=== PATIENT | female | born 1995 | race Caucasian/White ===

== ENCOUNTER 2017-06-30 00:45 | Emergency (ER) | payer MEDICAID, OTHER ==
--- NOTE | 2017-06-30 00:55 | EDPHY ---
H & P HPI/ROS: HPI CHIEF COMPLAINT: Alcohol Intoxication HISTORY OF PRESENT ILLNESS: Patient is a 21-year-old female she presents emergency room by EMS from a fr[employer] house after she drank large amount of alcohol. She was unable to ambulate and vomiting. No trauma reported. She presents emergency room highly intoxicated with alcohol. She has no complaints. History and review of systems limited due to patient's acute alcohol intoxication. Past Medical History: Unknown Past Surgical History: Unknown Social History: [employer] student, large amount of alcohol this evening. Family History: Unknown ROS REVIEW OF SYSTEMS: A comprehensive 10 point review of systems is otherwise negative aside from elements mentioned in the history of present illness. Exam Constitutional Intoxicated, triage nursing summary reviewed, vital signs reviewed, Sleepy, smells of alcohol Eyes normal conjunctivae and sclera, horizontal beating nystagmus consistent acute alcohol intoxication, otherwise pupils equal and react to light HENT normal inspection, atraumatic, moist mucus membranes, no epistaxis, neck supple/ no meningismus, no raccoon eyes. Respiratory clear to auscultation bilaterally, normal breath sounds, no respiratory distress, no wheezing. Cardiovascular rate normal, regular rhythm, no murmur, no edema, distal pulses normal. Gastrointestinal soft, non-tender, no rebound, no guarding, normal bowel sounds, no distension, no pulsatile mass. Genitourinary no CVA tenderness. Musculoskeletal no midline vertebral tenderness, full range of motion, no calf swelling, no tenderness of extremities, no meningismus, good pulses, neurovascularly intact. Skin pink, warm, & dry, no rash, skin atraumatic. Neurologic sleepy, intoxicated with alcohol,, alert and oriented x 3, AAOx3, moves all 4 extremities equally, motor intact, sensory intact, CN II-XII intact , , normal vision, normal speech. Psychiatric normal mood/affect. Heme/Lymph/Immune no lymphadenopathy. 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 Electrolytes. Monitor for worsening condition. Monitor for sobriety. Re-evaluation: 0405: Re-evaluation at this time. Patient ambulated well to the bathroom. Stable gait. No ataxia. Clinically sober now. She has no focal complaints. She would like to be discharged in emergency room. Will allow her to be discharged with a friend sober ride to pick her up. Source: Patient, EMS Constitutional: Initial Vital Signs Temperature (C) 36.7 C 06/30/17 00:53 Heart Rate 70 06/30/17 00:53 Respiratory Rate 16 06/30/17 00:53 Blood Pressure 106/72 06/30/17 00:53 O2 Sat (%) 94 06/30/17 00:53 O2 Delivery Mode Room Air Allergies/Adverse Reactions: No Known Allergies Allergy (Unverified 06/30/17 00:50) Home Medications: Medication Instructions Recorded NK [No Known Home Meds] 06/30/17 Medical Decision Making - Data Points Laboratory Results: 06/30/17 00:45 Ethyl Alcohol 320 mg/dL H mg/dL (0-10) Medications Given: Discontinued Medications Ondansetron HCl (Zofran) 4 mg IVP EDNOW ONE Stop: 06/30/17 01:10 Last Admin: 06/30/17 01:10 Dose: 4 mg Departure - Departure Disposition: Home, Routine, Self-Care Clinical Impression: Alcoholic intoxication Qualifiers: Complication of substance-induced condition: uncomplicated Qualified Code(s): F10.920 - Alcohol use, unspecified with intoxication, uncomplicated Condition: Good Instructions: Alcohol Intoxication (ED), Abuse of Alcohol (ED) Referrals: Patient,NotPresent [Primary Care Provider] - As per Instructions
[2017-06-30 00:58] VITALS: RESP 16; TEMP 98.1
[2017-06-30] MEDS ORDERED: ONDANSETRON 4 MG/2 ML VIAL ONE (01:05)
[2017-06-30] MEDS ORDERED: ONDANSETRON 4 MG/2 ML VIAL IVP ONE (01:09)
[2017-06-30 01:36] LABS: ETHANOL SERUM 320 mg/dL (0-10)
[2017-06-30 04:12] VITALS: O2SAT 97
[2017-06-30 04:38] VITALS: BP 112/71; PULSE 71
== END 2017-06-30 04:35 | disposition home or self-care (01) ==
DX: F10.920 Alcohol use, unspecified with intoxication, uncomplicated (principal)
CPT/HCPCS: 96374; G0480; J2405